=== PATIENT | female | born 1975 | race Caucasian/White ===

== ENCOUNTER 2020-08-10 21:14 | Emergency (ER) | payer SELFPAY ==
--- NOTE | 2020-08-10 | CT_ITS ---
PROCEDURE: CT HEAD/BRAIN W CON CLINICAL INDICATION: headache x 8 days Follow-up abnormal head CT COMPARISON: CT CT HEAD/BRAIN WO CON from 08/10/2020 TECHNIQUE: IV Contrast: 100ML Isovue 370 Axial images obtained. All CT scans at the facility use one or more dose reduction, viz: automated exposure control, ma/kV adjustment per patient size (including targeted exams where dose is matched to indication, i.e. head), or iterative reconstruction technique. FINDINGS: No midline shift, mass effect, intracranial hemorrhage, hydrocephalus, or extra-axial fluid collection is evident. There are multiple hypodense white matter lesions as described in the nonenhanced head CT in the right frontal, bilateral parietal lobes and right thalamus and right external capsule region.. These do not demonstrate contrast enhancement. The calvarium has an unremarkable appearance. No enhancing lesions are evident IMPRESSION: Post-contrast images show no evidence of abnormal enhancement of the multiple rounded areas of decreased attenuation within the white matter. These may be related to lacunar infarctions, demyelinating disease, Lyme disease, vasculitis/migraine headache. Dictated by: Ethan Morocho MD 08/11/2020 06:31 Ethan Morocho MD in [place] 08/11/2020 06:31
[2020-08-10 21:14] VITALS: BP 177/119; PULSE 96; RESP 19; TEMP 37.1; O2SAT 98; BMI 17.4
--- NOTE | 2020-08-10 21:23 | XR_ITS ---
PROCEDURE: XR CHEST 2V CLINICAL HISTORY: cough/congestion , smoker COMPARISON: CR CXR CHEST(2 VIEWS-NOT PORTABLE) from 08/22/2013 CR CXR CHEST(2 VIEWS-NOT PORTABLE) from 01/19/2015 CR CXR1 CHEST-PORTABLE from 05/30/2015 FINDINGS: The cardiomediastinal silhouette and pulmonary vascularity are within normal limits. COPD changes. No lobar consolidation or collapse. No acute bony abnormalities. IMPRESSION: COPD, no acute finding Dictated by: Ethan Morocho MD 08/11/2020 06:02 Ethan Morocho MD in [facility] 08/11/2020 06:02
--- NOTE | 2020-08-10 21:28 | ECG_ITS ---
APPROVED REPORT Exam: Resting ECG HR:92 bpm ECG Measurements Heart Rate 92 AXES MA 160 P 60 QRSd 90 QRS -16 QT 376 T 54 QTc 464 Conclusion Normal sinus rhythm Left atrial abnormality Poor r wave progression Abnormal ECG Electronically signed by : Anshul Aguilera, 08/15/2020 07:34:25
--- NOTE | 2020-08-10 21:30 | CT_ITS ---
PROCEDURE: CT HEAD/BRAIN WO CON CLINICAL INDICATION: headache x 8 days COMPARISON: CT HDWO CT HEAD W/O CONTRAST from 08/22/2013 TECHNIQUE: Axial images obtained. All CT scans at the facility use one or more dose reduction, viz: automated exposure control, ma/kV adjustment per patient size (including targeted exams where dose is matched to indication, i.e. head), or iterative reconstruction technique. FINDINGS: No midline shift, mass effect, intracranial hemorrhage, hydrocephalus, or extra-axial fluid collection is evident. There are numerous small focal areas decreased attenuation in the white matter 2 in the right parietal lobe, 1 in the right frontal lobe, and 1 in the left parietal lobe. These were not present previously and may represent remote lacunar infarctions. Additional focus is also noted within the right thalamus superiorly and in the right external capsule region. The calvarium has an unremarkable appearance. No mastoid effusion. Mild mucosal thickening present in the ethmoid sinuses. IMPRESSION: Multiple white matter hypodensities which have developed since the previous exam and may be due to remote lacunar infarctions. MRI may confirm. No midline shift or acute intracranial hemorrhage. Dictated by: Ethan Morocho MD 08/11/2020 06:27 Ethan Morocho MD in [facility] 08/11/2020 06:27
--- NOTE | 2020-08-10 21:34 | HMH.EDHA ---
ED Disposition Clinical Impression: Bronchitis, Transaminitis, Abnormal head CT, Uncontrolled hypertension Headache Qualifiers: Headache type: unspecified Headache chronicity pattern: acute headache Intractability: not intractable Qualified Code(s): R51.9 - Headache, unspecified Alcohol intoxication Qualifiers: Complication of substance-induced condition: uncomplicated Qualified Code(s): F10.920 - Alcohol use, unspecified with intoxication, uncomplicated Disposition: Home, Self-Care Condition on Discharge: Good Instructions: DI for Headache Additional Instructions: see pcp and neurology for follow up Prescriptions: lisinopriL [Lisinopril 10mg Tab] 10 mg PO DAILY #20 tab Transmission Status: Pending to [facility]/pharmacy #[id number] Azithromycin [Zithromax 250mg tab] 250 mg PO DIRECTED #6 tab Transmission Status: Received by [facility]/pharmacy #[id number] Referrals: Provider,MD Noemí [Referring] - Anel Mena MD [Staff Physician] - - Critical Care Critical Care Time: No Attestation: On 08/10/20, the high probability of a clinically significant, sudden or life threatening deterioration of the following system(s) required my full and direct attention, intervention and personal management. The time I documented below is in addition to time spent performing reported procedures but includes the following listed in this critical care notation. Medical Decision Making - Medical Records Medical records reviewed: Yes: I reviewed the patient's medical records. - Juancho Inquiry Pt receiving controlled substance: No Vital Signs: 08/10/20 21:14 Temperature 98.7 F Temperature Source Oral Pulse Rate [Right Brachial] 96 H Respiratory Rate 19 Blood Pressure [Right Arm] 177/119 H Blood Pressure Mean [Right Arm] 138 Blood Pressure Source [Right Arm] Automatic Cuff Blood Pressure Position [Right Arm] Sitting 02 Sat by Pulse Oximetry 98 Oxygen Delivery Method Room Air - Lab Data Lab results reviewed: Yes: I reviewed the patient's lab results. Lab Results 08/10/20 21:20: WBC 7.1, RBC 5.06, Hgb 15.8, Hct 49.2 H, MCV 97.2, MCH 31.2, MCHC 32.1, RDW 14.6, Plt Count 319, MPV 8.7, Neut % (Auto) 55.5, Lymph % (Auto) 34.5, [place] % (Auto) 5.6, Eos % (Auto) 3.3, Baso % (Auto) 1.2, Neut # (Auto) 4.0, Lymph # (Auto) 2.5, [place] # (Auto) 0.4, Eos # (Auto) 0.2, Baso # (Auto) 0.1, ESR 6 08/10/20 21:20: Sodium 141, Potassium 3.9, Chloride 106, Carbon Dioxide 25, Anion Gap 13.9, BUN 10, Creatinine 0.80, Estimated Creat Clear 61, Estimated GFR 78, Est GFR ( Amer) 94, Glucose 108 H, Calcium 10.2, Total Bilirubin 0.5, Direct Bilirubin 0.3, Conjugated Bilirubin 0.0, Indirect Bilirubin 0.2, Unconjugated Bilirubin 0.2, AST 396 H*, ALT 605 H*, Alkaline Phosphatase 282 H, Troponin I < 0.01, C-Reactive Protein 1.3, Total Protein 8.0, Albumin 4.5, Amylase 62, Lipase 121, Procalcitonin 0.074, Salicylates < 1.0 L, Acetaminophen < 10 L 08/10/20 21:20: SARS-CoV-2 IgG Ab (Rapid) Negative, SARS-CoV-2 IgM Ab (Rapid) Negative 08/10/20 21:20: Plasma/Serum Alcohol 122 H 08/11/20 00:00: Urine Color Yellow, Urine Appearance Clear, Urine pH 6.5, Ur Specific [place] 1.010, Urine Protein Negative, Urine Glucose (UA) Negative, Urine Ketones Negative, Urine Blood Negative, Urine Nitrate Positive, Urine Bilirubin Negative, Urine Urobilinogen 0.2, Ur Leukocyte Esterase Trace, Urine WBC Occasional, Ur Squamous Epith Cells 3-5, Amorphous Sediment 1+, Urine Bacteria 1+, Urine Mucus 1+ 08/11/20 00:00: Urine Opiates Screen Negative, Urine Methadone Screen Negative, Ur Barbituates Screen Negative, Ur Phencyclidine Scrn Negative, Ur Amphetamines Screen Negative, U Benzodiazepines Scrn Negative, Urine Cocaine Screen Negative, U Marijuana (THC) Screen Negative 08/11/20 00:35: Troponin I < 0.01 Result diagrams: 08/10/20 21:20 08/10/20 21:20 Orders (Tests/Meds): ED MEDICATIONS Generic Name Dose Route Start Last Admin Trade Name Freq PRN Reason Stop Dose Admin Sodium Chlorid
[2020-08-10 21:36] LABS: Ethyl Alcohol 122 mg/dl (0-10)
[2020-08-10 21:40] LABS: Basophils # 0.1 K/mm3 (0-0.2); Basophils % 1.2 % (0.1-2.0); Eosinophils # 0.2 K/mm3 (0.0-0.4); Eosinophils % 3.3 % (0.1-12.0); Hematocrit 49.2 % (37.0-47.0); Hemoglobin 15.8 g/dL (12.2-16.2); Lymphocytes # 2.5 K/mm3 (0.7-4.5); Lymphocytes % 34.5 % (10-50); Mean Corpuscular HGB Conc 32.1 g/dL (31.8-35.4); Mean Corpuscular Hemoglobin 31.2 pg (27.0-31.2); Mean Corpuscular Volume 97.2 fl (81-99); Mean Platelet Volume 8.7 fl (7.4-10.4); Monocytes # 0.4 K/mm3 (0.1-1.0); Monocytes % 5.6 % (1.7-9.3); Neutrophils % 55.5 % (37.0-80.0); Platelet Count 319 K/mm3 (142-424); Red Blood Count 5.06 M/mm3 (4.20-5.40); Red Cell Distribution Width 14.6 % (11.5-17.5); White Blood Count 7.1 K/mm3 (4.8-10.8)
[2020-08-10 21:54] LABS: Coronavirus 19 IgG Antibody Negative (Negative); Coronavirus 19 IgM Antibody Negative (Negative)
[2020-08-10 22:16] LABS: Chloride 106 mmol/L (98-107); Sodium 141 mmol/L (136-145)
[2020-08-10 22:17] LABS: Potassium 3.9 mmoL/L (3.5-5.1)
[2020-08-10 22:19] LABS: Alanine Aminotransferase 605 U/L (12-78); Alkaline Phosphatase 282 U/L (38-126); Amylase 62 U/L (30-110); Anion Gap 13.9 mEq/L (5-15); Aspartate Amino Transferase 396 U/L (14-36); Bilirubin,Direct 0.3 mg/dl (0.0-0.4); Bilirubin,Indirect 0.2 mg/dL (0.0-0.9); Bilirubin,Total 0.5 mg/dl (0.2-1.3); Bilirubin,Unconjugated 0.2 mg/dL (0.0-1.1); Blood Urea Nitrogen 10 mg/dl (7-17); Calcium 10.2 mg/dl (8.4-10.2); Carbon Dioxide 25 mmol/L (22.0-30.0); Creatinine Clearance Estimated 61 mL/min (50-200); Estimated Glomerular Filt Rate 78 ml/min (>60); GFR (African American) 94 ML/MIN (>60); Glucose 108 mg/dl (74-100)
[2020-08-10 22:20] LABS: Albumin Level 4.5 g/dl (3.5-5.0); Lipase 121 U/L (23-300)
[2020-08-10 22:21] LABS: Acetaminophen < 10 ug/ml (10-30); Salicylate < 1.0 mg/dL (2.0-20.0)
[2020-08-10 22:23] LABS: Erythrocyte Sedimentation Rate 6 mm/hr (0-20)
[2020-08-10 22:25] LABS: C-Reactive Protein 1.3 mg/L (0-4)
[2020-08-10 22:40] LABS: Troponin I < 0.01 ng/ml (0.00-0.034)
[2020-08-10 23:19] LABS: Procalcitonin 0.074 ng/mL (0.0-2.0)
--- NOTE | 2020-08-10 23:22 | PC.NURSE ---
notified rad of cta.
[2020-08-11 00:03] LABS: Microscopic, Urine URINE MICROSCOPIC (MICROSCOPIC)
[2020-08-11 00:17] LABS: Appearance,Urine CLEAR (Clear); Bilirubin,Urine Negative (Negative); Blood, Urine Negative (Negative); Color,Urine YELLOW (Yellow); Glucose,Urine (UA) Negative (Negative); Ketones,Urine Negative (Negative); Leukocyte Esterase,Urine TRACE (Negative); Nitrate,Urine POSITIVE (Negative); PH,Urine 6.5 (5.0-8.5); Protein,Urine Negative (Negative); Urobilinogen,Urine 0.2 EU/dl (0.2)
[2020-08-11 00:29] LABS: Benzodiazepines Screen,Urine Negative ng/ml (<200)
[2020-08-11 00:30] LABS: Amphetamine/Metha Screen,Urine Negative ng/ml (<1000); Barbiturates Screen,Urine Negative ng/ml (<200)
[2020-08-11 00:31] LABS: Cannabinoid Screen,Urine Negative ng/ml (<50)
[2020-08-11 00:32] LABS: Cocaine Screen,Urine Negative ng/ml (<300); Methadone Screen,Urine Negative ng/ml (<300)
[2020-08-11 00:33] LABS: Opiate Screen,Urine Negative ng/ml (<300); Phencyclidine Screen,Urine Negative ng/ml (<25)
[2020-08-11 00:39] LABS: Amorphous Sediment,Urine 1+ /lpf; Bacteria,Urine 1+ /lpf; Mucus,Urine 1+ /lpf; WBC,Urine Occasional #/hpf (0-3)
[2020-08-11 01:04] LABS: Troponin I < 0.01 ng/ml (0.00-0.034)
--- NOTE | 2020-08-11 01:27 | PC.NURSE ---
spoke with pt family and pt mother stated she didnt have a way to come get her
--- NOTE | 2020-08-11 01:35 | PC.NURSE ---
pt asked this nurse to call her niece. no answer at this time
--- NOTE | 2020-08-11 01:36 | PC.NURSE ---
pt given a drink
[2020-08-11 01:49] VITALS: BP 162/105; PULSE 85; RESP 19; O2SAT 98
[2020-08-11 02:06] VITALS: BP 182/97; PULSE 75; RESP 17; TEMP 36.8; O2SAT 98
== END 2020-08-11 02:08 | disposition home or self-care (01) ==
PROVIDERS: Emergency Provider Emergency Medicine
DX: J20.9 Acute bronchitis, unspecified (principal); R74.01 Elevation of levels of liver transaminase levels; I10 Essential (primary) hypertension; F10.920 Alcohol use, unspecified with intoxication, uncomplicated; Z01.84 Encounter for antibody response examination
CPT/HCPCS: 70450; 70460; 71046; 80048; 80076; 80305; 80329; 81001; 82150; 83690; 84145; 84484; 85025; 85651; 86140; 86328; 87086; 87088; 87186; 93005; 99282

== ENCOUNTER → 2023-01-30 19:35 | Outpatient (CLI) | payer MEDICARE, SELFPAY ==
[2023-01-30 20:56] LABS: Basophils % 0.6 % (0.1-2.0); Eosinophils # 0.2 K/mm3 (0.0-0.4); Eosinophils % 2.3 % (0.1-12.0); Hemoglobin 14.7 g/dL (12.2-16.2); Lymphocytes % 25.3 % (10-50); Mean Corpuscular HGB Conc 32.1 g/dL (31.8-35.4); Mean Corpuscular Hemoglobin 30.4 pg (27.0-31.2); Mean Corpuscular Volume 94.8 fl (81-99); Mean Platelet Volume 10.1 fl (7.4-10.4); Monocytes # 0.4 K/mm3 (0.1-1.0); Monocytes % 5.1 % (1.7-9.3); Neutrophils # 5.2 K/mm3 (1.8-7.8); Neutrophils % 66.7 % (37.0-80.0); Platelet Count 340 K/mm3 (142-424); Red Blood Count 4.85 M/mm3 (4.20-5.40); Red Cell Distribution Width 13.5 % (11.5-17.5); White Blood Count 7.8 K/mm3 (4.8-10.8)
[2023-01-30 21:56] LABS: Alanine Aminotransferase 109 U/L (12-78); Albumin Level 4.1 g/dl (3.5-5.0); Albumin/Globulin Ratio 1.1 (1.1-1.8); Alkaline Phosphatase 127 U/L (38-126); Amylase 65 U/L (30-110); Anion Gap 15.7 mEq/L (5-15); Aspartate Amino Transferase 91 U/L (14-36); Bilirubin,Total 0.5 mg/dl (0.2-1.3); Blood Urea Nitrogen 8 mg/dl (7-17); Calcium 9.5 mg/dl (8.4-10.2); Carbon Dioxide 26 mmol/L (22.0-30.0); Chloride 98 mmol/L (98-107); Chol/HDL Ratio 5.5 (1-3.5); Cholesterol 242 mg/dl (140-200); Estimated Glomerular Filt Rate 77 ml/min (>60); GFR (African American) 93 ML/MIN (>60); Globulin 3.6 g/dL (1.3-3.2); Glucose 91 mg/dl (74-100); HDL Cholesterol 44 mg/dl (40-60); Potassium 4.7 mmoL/L (3.5-5.1); Sodium 135 mmol/L (136-145); Total Protein,Serum 7.7 g/dl (6.3-8.2); Triglycerides 279 mg/dl (30-150); VLDL Cholesterol 56 mg/dL (0-40)
[2023-01-30 22:06] LABS: Direct LDL Cholesterol 163.45 mg/dL (100-129)
[2023-01-30 22:27] LABS: Thyroid Stimulating Hormone 2.21 uIU/mL (0.465-4.68)
[2023-01-30 22:56] LABS: Hemoglobin A1C 5.4 % (4.0-6.0)
[2023-01-30 23:02] LABS: Vitamin B12 326 pg/mL (239-931)
[2023-01-30 23:03] LABS: Folate 9.12 ng/mL
[2023-02-01 11:12] LABS: HIV Screen 4th Generation wRfx Non Reactive (Non Reactive)
[2023-02-04 14:39] LABS: HBsAg Screen Negative (Negative); HCV Ab Reactive (Non Reactive); Hep A Ab, IGM Negative (Negative); Hep B Core Ab, IgM Negative (Negative)
== END ==
PROVIDERS: PCP Nurse Practitioner; Visit Provider Nurse Practitioner
DX: I16.1 Hypertensive emergency (principal); D48.7 Neoplasm of uncertain behavior of other specified sites; K85.90 Acute pancreatitis without necrosis or infection, unspecified; R74.8 Abnormal levels of other serum enzymes; R26.89 Other abnormalities of gait and mobility; J44.9 Chronic obstructive pulmonary disease, unspecified; Z86.69 Personal history of other diseases of the nervous system and sense organs; B19.20 Unspecified viral hepatitis C without hepatic coma; Z11.4 Encounter for screening for human immunodeficiency virus [HIV]; Z79.899 Other long term (current) drug therapy
CPT/HCPCS: 80053; 80061; 80074; 82150; 82607; 82746; 83036; 84443; 85025; 86703; G0432

== ENCOUNTER 2023-02-01 14:05 | Inpatient (IN) | payer MEDICAID, SELFPAY ==
[2023-02-01] VITALS (12 sets, daily range): BP systolic 139–196; BP diastolic 100–133; PULSE 77–102; RESP 17–19; TEMP 36.4–36.8; O2SAT 97–100; BMI 25.1; BMI 25.4
--- NOTE | 2023-02-01 14:06 | ECG_ITS ---
APPROVED REPORT Exam: Resting ECG HR:88 bpm ECG Measurements Heart Rate 88 AXES NV 153 P 48 QRSd 89 QRS -14 QT 361 T 80 QTc 406 Conclusion SINUS RHYTHM NONSPECIFIC T-WAVE ABNORMALITY BORDERLINE ECG UNCONFIRMED REPORT Electronically signed by : Anshul Aguilera MD 02/02/2023 07:44:51
--- NOTE | 2023-02-01 14:18 | HMH.EDGENADL ---
Discharge Plan Disposition Patient Disposition: Home, Self-Care Prescriptions Prescriptions: No Action lisinopril 20 mg tablet 20 mg PO DAILY Qty: 30 2RF cefdinir 300 mg capsule 300 mg PO BID Qty: 20 0RF albuterol sulfate 90 mcg/actuation HFA aerosol inhaler 2 puff inhalation Q4-6H PRN (Reason: shortness of breath or wheezing) Qty: 8.5 0RF Clinical Impressions Clinical Impression: Non-ST elevation [place] (NSTEMI) Discharge ED Provider: Stef Claros General Adult HPI General Chief complaint: Chest Pain Stated complaint: chest pain Time Seen by Provider: 02/01/23 14:18 History of Present Illness HPI narrative: Patient is a 47-year-old female who is homeless presenting today accompanied by a friend for chest pain. She went to family care today and states that she has been having chest pain over the last 3 days that has been nocturnal radiating to her left jaw and left arm not exertional in nature no dyspnea or diaphoresis associated with this worsened with sitting back improved with sitting up consistent with gastroesophageal reflux symptoms she has had in the past. She states that she was at her primary care doctor's office and because she has a difficult time remembering things they called her friend who accompanied her to the ED today. The patient is homeless and states that she does not have a phone for follow-up. 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 She has been without any symptoms since last night. Currently asymptomatic. Related Data Previous Rx's Medication Instructions Recorded albuterol sulfate 90 mcg/actuation 2 puff inhalation Q4-6H PRN 02/01/23 aerosol inhaler shortness of breath or wheezing #8.5 grams cefdinir 300 mg capsule 300 mg PO BID #20 caps 02/01/23 lisinopril 20 mg tablet 20 mg PO DAILY #30 tabs 02/01/23 Allergies Allergy/AdvReac Type Severity Reaction Status Date / Time PENICILLIN Allergy Mild UNKNOWN Uncoded 02/01/23 12:59 [facility] Disclaimer: The information contained in this section may have been updated after the patient was seen, as this information can be updated by other users. Medical History (Updated 02/01/23 @ 15:49 by Stef Claros MD) Chest pain COPD (chronic obstructive pulmonary disease) Elevated liver enzymes Hepatitis C History of cardiomyopathy History of encephalopathy Hx of pancreatitis Hypertensive emergency Neoplasm of uncertain behavior of neck Pancreatitis Unsteady gait when walking Surgical History Hx of cholecystectomy Social History Smoking Status: Current every day smoker tobacco type: cigarettes packs per day: 1 alcohol intake: never current occupational status: unemployed Travel in the last 8 weeks: None ROS Obtained: Yes All systems reviewed & no additional complaints except as documented Physical Exam General General appearance: alert Respiratory Respiratory exam: Present normal lung sounds bilaterally; Absent respiratory distress Cardiovascular Cardiovascular exam: Present regular rate and tachycardia Neurological Exam Neurological exam: Present alert and oriented X3 Medical Decision Making Juancho Inquiry Pt receiving controlled substance: No Vital Signs: 02/01/23 14:06 02/01/23 14:30 02/01/23 15:04 Temperature 97.8 F Temperature Source Oral Pulse Rate 91 H 84 Pulse Rate [Left Radial] 99 H Respiratory Rate 17 Blood Pressure 184/133 H 155/107 H Blood Pressure [Right Arm] 196/130 H Blood Pressure Mean 150 123 Blood Pressure Mean [Right Arm] 152 Blood Pressure Source [Right Arm] Automatic Cuff Blood Pressure Position [Right Arm] Sitting 02 Sat by Pulse Oximetry 99 100 98 Oxygen Delivery Method Room Air Room Air Lab Data
--- NOTE | 2023-02-01 14:26 | XR_ITS ---
FINAL REPORT CLINICAL HISTORY: dyspnea COMPARISON: 08/10/2020 FINDINGS: SINGLE-VIEW CHEST The heart size is normal. The mediastinum is normal. The lungs are clear. There is no pneumothorax. IMPRESSION: No acute cardiopulmonary process. Reviewed, Interpreted and Dictated by Ezio Encinas III, MD Transcribed by Tiffany Baltazar Authenticated and [facility]
--- NOTE | 2023-02-01 14:40 | PC.NURSE ---
Pt ambulatory to restroom; without complications
--- NOTE | 2023-02-01 14:42 | PC.NURSE ---
pt ambulatory from restroom without complications. hooked back to monitor, call byrd within reach
--- NOTE | 2023-02-01 14:51 | PC.NURSE ---
Rad at bs
--- NOTE | 2023-02-01 15:07 | PC.NURSE ---
labs drawn and sent to lab
[2023-02-01 15:15] LABS: Basophils # 0.1 K/mm3 (0-0.2); Basophils % 0.8 % (0.1-2.0); Eosinophils # 0.2 K/mm3 (0.0-0.4); Eosinophils % 2.3 % (0.1-12.0); Hematocrit 49.6 % (37.0-47.0); Lymphocytes # 1.7 K/mm3 (0.7-4.5); Lymphocytes % 23.3 % (10-50); Mean Corpuscular HGB Conc 32.3 g/dL (31.8-35.4); Mean Corpuscular Hemoglobin 30.8 pg (27.0-31.2); Mean Corpuscular Volume 95.2 fl (81-99); Mean Platelet Volume 8.7 fl (7.4-10.4); Monocytes # 0.3 K/mm3 (0.1-1.0); Monocytes % 3.7 % (1.7-9.3); Neutrophils # 5.1 K/mm3 (1.8-7.8); Neutrophils % 69.9 % (37.0-80.0); Platelet Count 335 K/mm3 (142-424); Red Blood Count 5.21 M/mm3 (4.20-5.40); Red Cell Distribution Width 13.5 % (11.5-17.5); White Blood Count 7.3 K/mm3 (4.8-10.8)
[2023-02-01 15:18] LABS: Alanine Aminotransferase 110 U/L (12-78); Albumin Level 4.4 g/dl (3.5-5.0); Alkaline Phosphatase 150 U/L (38-126); Anion Gap 17.4 mEq/L (5-15); Aspartate Amino Transferase 102 U/L (14-36); Bilirubin,Total 0.6 mg/dl (0.2-1.3); Blood Urea Nitrogen 6 mg/dl (7-17); Calcium 9.6 mg/dl (8.4-10.2); Carbon Dioxide 26 mmol/L (22.0-30.0); Chloride 98 mmol/L (98-107); Creatinine Clearance Estimated 84 mL/min (50-200); Estimated Glomerular Filt Rate 77 ml/min (>60); GFR (African American) 93 ML/MIN (>60); Globulin 4.3 g/dL (1.3-3.2); Glucose 98 mg/dl (74-100); Potassium 4.4 mmoL/L (3.5-5.1); Sodium 137 mmol/L (136-145); Total Protein,Serum 8.7 g/dl (6.3-8.2)
[2023-02-01 15:24] LABS: D-Dimer 0.68 ug/mL (0.0-0.5)
[2023-02-01 15:31] LABS: Troponin I 1.47 ng/ml (0.00-0.034)
--- NOTE | 2023-02-01 15:40 | PC.NURSE ---
Dr. Carrillo paged for ED doctor
--- NOTE | 2023-02-01 15:42 | PC.NURSE ---
Dr Claros speaking with Dr Carrillo
--- NOTE | 2023-02-01 15:45 | ECG_ITS ---
APPROVED REPORT Exam: Resting ECG HR:84 bpm ECG Measurements Heart Rate 84 AXES [place] 161 P 52 QRSd 85 QRS -2 QT 378 T 75 QTc 419 Conclusion SINUS RHYTHM NONSPECIFIC T-WAVE ABNORMALITY BORDERLINE ECG UNCONFIRMED REPORT Electronically signed by : Anshul Aguilera MD 02/02/2023 07:44:38
--- NOTE | 2023-02-01 15:57 | EXP.HP ---
[facility] Disclaimer: The information contained in this section may have been updated after the patient was seen, as this information can be updated by other users. Medical History (Updated 02/01/23 @ 15:49 by Stef Claros MD) Chest pain COPD (chronic obstructive pulmonary disease) Elevated liver enzymes Hepatitis C History of cardiomyopathy History of encephalopathy Hx of pancreatitis Hypertensive emergency Neoplasm of uncertain behavior of neck Pancreatitis Unsteady gait when walking Surgical History Hx of cholecystectomy Social History Smoking Status: Current every day smoker tobacco type: cigarettes packs per day: 1 alcohol intake: never current occupational status: unemployed Travel in the last 8 weeks: None Meds Home Medications and Allergies Home Medications Medication Instructions Recorded Confirmed Type albuterol sulfate 90 mcg/actuation 2 puff inhalation Q4-6H PRN 02/01/23 02/01/23 Rx aerosol inhaler shortness of breath or wheezing #8.5 grams cefdinir 300 mg capsule 300 mg PO BID #20 caps 02/01/23 02/01/23 Rx lisinopril 20 mg tablet 20 mg PO DAILY #30 tabs 02/01/23 02/01/23 Rx New Prescriptions to Start Prescriptions: Allergies Allergy/AdvReac Type Severity Reaction Status Date / Time PENICILLIN Allergy Mild UNKNOWN Uncoded 02/01/23 12:59 Exam Data for Last 24 hours Vital signs and Labs for Last 24 Hours: Temp Pulse Resp BP Pulse Ox 97.8 F 84 17 155/107 H 98 02/01/23 14:06 02/01/23 15:04 02/01/23 14:06 02/01/23 15:04 02/01/23 15:04 Laboratory Results - last 24 hr 02/01/23 15:04: WBC 7.3, RBC 5.21, Hgb 16.0, Hct 49.6 H, MCV 95.2, MCH 30.8, MCHC 32.3, RDW 13.5, Plt Count 335, MPV 8.7, Neut % (Auto) 69.9, Lymph % (Auto) 23.3, [place] % (Auto) 3.7, Eos % (Auto) 2.3, Baso % (Auto) 0.8, Neut # (Auto) 5.1, Lymph # (Auto) 1.7, [place] # (Auto) 0.3, Eos # (Auto) 0.2, Baso # (Auto) 0.1 02/01/23 15:04: D-Dimer 0.68 H 02/01/23 15:04: Sodium 137, Potassium 4.4, Chloride 98, Carbon Dioxide 26, Anion Gap 17.4 H, BUN 6 L, Creatinine 0.80, Estimated Creat Clear 84, Estimated GFR 77, Est GFR ( Amer) 93, Glucose 98, Calcium 9.6, Total Bilirubin 0.6, AST 102 H, ALT 110 H, Alkaline Phosphatase 150 H, Troponin I 1.47 H, Total Protein 8.7 H, Albumin 4.4, Globulin 4.3 H, Albumin/Globulin Ratio 1.0 L I & O for Last 24 hours: Intake & Output 01/29/23 01/30/23 01/31/23 02/01/23 23:59 23:59 23:59 23:59 Weight 60.328 kg
--- NOTE | 2023-02-01 16:26 | PC.NURSE ---
notified lab of covid swab sent up and order placed
--- NOTE | 2023-02-01 16:27 | PC.NURSE ---
called report to BLADIMIR Lloyd waiting on COVID results before transfer to second floor
[2023-02-01 16:28] LABS: Coronavirus 19, PCR Not Detected (NotDetected); Influenza A, PCR Not Detected (NotDetected); Influenza B, PCR Not Detected (NotDetected)
--- NOTE | 2023-02-01 17:12 | PC.NURSE ---
Latanya Ham RN called and updated on patient.
--- NOTE | 2023-02-01 17:26 | PC.NURSE ---
PT ARRIVED TO FLOOR BY STRETCHER AT [id number]
[2023-02-01 18:29] LABS: Troponin I 1.38 ng/ml (0.00-0.034)
--- NOTE | 2023-02-01 20:06 | EXP.HP ---
History of Present Illness *Admission Date: 02/01/23 *Reason for visit:: Chest pain *History of present illness: This is a 47-year-old female with past medical history of asthma, tobacco use disorder, chronic pancreatitis, HCVwho presents emergency department today for complaints of chest pain. She reports she was seen by her doctor today and complained of chest pain and they sent her to the emergency department. She reports the chest pain started last night and was pressure-like in nature and center of her chest. She denies any radiation of the pain. She states the pain has now subsided but her PCP wanted her to be checked. She denies any palpitations, shortness of breath, chest pain. She does have a history of alcoholism but currently denies alcohol usage. She denies illicit drug use but does endorse pack a day. Emergency department work-up significant for transaminitis but similar to baseline. Troponin elevated at 1.47 with a downtrend of 1.38. COVID and flu are negative. She was noted to be hypertensive with systolic in the 140s. She received aspirin and Brilinta in the emergency department. Dr. Carrillo was consulted and recommends hospitalization. She is admitted to the hospital service for further evaluation [facility] Disclaimer: The information contained in this section may have been updated after the patient was seen, as this information can be updated by other users. Medical History Chest pain COPD (chronic obstructive pulmonary disease) Elevated liver enzymes Hepatitis C History of cardiomyopathy History of encephalopathy Hx of pancreatitis Hypertensive emergency Neoplasm of uncertain behavior of neck Pancreatitis Unsteady gait when walking Surgical History Hx of cholecystectomy Social History (Updated 02/01/23 @ 16:57 by Telma Meeks RN) Smoking Status: Current every day smoker tobacco type: cigarettes packs per day: 1 alcohol intake: never current occupational status: unemployed Travel in the last 8 weeks: None Review of Systems Review of Systems Review of systems:: pertinent systems reviewed and negative unless documented below Meds Home Medications and Allergies Home Medications Medication Instructions Recorded Confirmed Type albuterol sulfate 90 mcg/actuation 2 puff inhalation Q4HP PRN 02/02/23 02/02/23 History aerosol inhaler (Ventolin HFA) Shortness Of Breath cefdinir 300 mg capsule 300 mg PO BID Infection 02/02/23 02/02/23 History lisinopril 20 mg tablet 20 mg PO DAILY BLOOD PRESSURE 02/02/23 02/02/23 History New Prescriptions to Start Prescriptions: Allergies Allergy/AdvReac Type Severity Reaction Status Date / Time Penicillins Allergy Intermediate Unknown Verified 02/02/23 10:38 allergy reaction Exam Data for Last 24 hours Vital signs and Labs for Last 24 Hours: Temp Pulse Resp BP Pulse Ox 97.6 F 85 18 140/103 H 100 02/01/23 17:32 02/01/23 18:07 02/01/23 17:32 02/01/23 17:32 02/01/23 17:50 Laboratory Results - last 24 hr 02/01/23 15:04: WBC 7.3, RBC 5.21, Hgb 16.0, Hct 49.6 H, MCV 95.2, MCH 30.8, MCHC 32.3, RDW 13.5, Plt Count 335, MPV 8.7, Neut % (Auto) 69.9, Lymph % (Auto) 23.3, [place] % (Auto) 3.7, Eos % (Auto) 2.3, Baso % (Auto) 0.8, Neut # (Auto) 5.1, Lymph # (Auto) 1.7, [place] # (Auto) 0.3, Eos # (Auto) 0.2, Baso # (Auto) 0.1 02/01/23 15:04: D-Dimer 0.68 H 02/01/23 15:04: Sodium 137, Potassium 4.4, Chloride 98, Carbon Dioxide 26, Anion Gap 17.4 H, BUN 6 L, Creatinine 0.80, Estimated Creat Clear 84, Estimated GFR 77, Est GFR ( Amer) 93, Glucose 98, Calcium 9.6, Total Bilirubin 0.6, AST 102 H, ALT 110 H, Alkaline Phosphatase 150 H, Troponin I 1.47 H, Total Protein 8.7 H, Albumin 4.4, Globulin 4.3 H, Albumin/Globulin Ratio 1.0 L 02/01/23 16:23: SARS-CoV-2 (PCR) Not detected, Influenza A Untype (PCR) Not detected, Influenza Type
[2023-02-01 21:07] LABS: Troponin I 1.34 ng/ml (0.00-0.034)
[2023-02-01 22:20] LABS: Appearance,Urine CLEAR (Clear); Bilirubin,Urine Negative (Negative); Blood, Urine Negative (Negative); Color,Urine YELLOW (Yellow); Glucose,Urine (UA) Negative (Negative); Ketones,Urine Negative (Negative); Leukocyte Esterase,Urine 1+ (Negative); Microscopic, Urine URINE MICROSCOPIC (MICROSCOPIC); Nitrate,Urine Negative (Negative); Protein,Urine Negative (Negative)
[2023-02-01 22:33] LABS: Barbiturates Screen,Urine Negative ng/ml (<200); Benzodiazepines Screen,Urine Negative ng/ml (<200)
[2023-02-01 22:34] LABS: Amphetamine/Metha Screen,Urine Negative ng/ml (<1000); Cannabinoid Screen,Urine Negative ng/ml (<50)
[2023-02-01 22:35] LABS: Cocaine Screen,Urine Negative ng/ml (<300)
[2023-02-01 22:36] LABS: Methadone Screen,Urine Negative ng/ml (<300); Opiate Screen,Urine Negative ng/ml (<300)
[2023-02-01 22:37] LABS: Phencyclidine Screen,Urine Negative ng/ml (<25)
[2023-02-01 23:04] LABS: WBC,Urine Occasional #/hpf (0-3)
[2023-02-01 23:05] LABS: Squamous Epithelial Cell,Urine Occasional #/hpf (0-5)
[2023-02-02] VITALS (23 sets, daily range): BP systolic 99–148; BP diastolic 55–102; PULSE 70–101; RESP 14–21; TEMP 36.6–36.8; O2SAT 91–100; BMI 24.4
--- NOTE | 2023-02-02 09:10 | PC.NURSE ---
09-Notified by Dr Carrillo to page cath team for [id number]; mac operator notified and cath team paged 09-Michaelle Montana and Felisa returned call
[2023-02-02 09:13] LABS: Basophils % 0.5 % (0.1-2.0); Eosinophils # 0.1 K/mm3 (0.0-0.4); Eosinophils % 1.8 % (0.1-12.0); Hematocrit 44.4 % (37.0-47.0); Hemoglobin 14.5 g/dL (12.2-16.2); Lymphocytes # 1.7 K/mm3 (0.7-4.5); Lymphocytes % 20.9 % (10-50); Mean Corpuscular HGB Conc 32.7 g/dL (31.8-35.4); Mean Corpuscular Hemoglobin 30.5 pg (27.0-31.2); Mean Corpuscular Volume 93.2 fl (81-99); Mean Platelet Volume 8.6 fl (7.4-10.4); Monocytes # 0.4 K/mm3 (0.1-1.0); Monocytes % 5.3 % (1.7-9.3); Neutrophils # 5.9 K/mm3 (1.8-7.8); Neutrophils % 71.4 % (37.0-80.0); Platelet Count 372 K/mm3 (142-424); Red Blood Count 4.76 M/mm3 (4.20-5.40); Red Cell Distribution Width 13.7 % (11.5-17.5); White Blood Count 8.2 K/mm3 (4.8-10.8)
[2023-02-02 09:23] LABS: Alanine Aminotransferase 87 U/L (12-78); Albumin Level 3.9 g/dl (3.5-5.0); Albumin/Globulin Ratio 1.1 (1.1-1.8); Alkaline Phosphatase 137 U/L (38-126); Anion Gap 18.1 mEq/L (5-15); Aspartate Amino Transferase 78 U/L (14-36); Bilirubin,Total 0.9 mg/dl (0.2-1.3); Blood Urea Nitrogen 9 mg/dl (7-17); Calcium 9.4 mg/dl (8.4-10.2); Carbon Dioxide 22 mmol/L (22.0-30.0); Chloride 100 mmol/L (98-107); Creatinine Clearance Estimated 72 mL/min (50-200); Estimated Glomerular Filt Rate 67 ml/min (>60); GFR (African American) 82 ML/MIN (>60); Globulin 3.7 g/dL (1.3-3.2); Glucose 123 mg/dl (74-100); Potassium 4.1 mmoL/L (3.5-5.1); Sodium 136 mmol/L (136-145); Total Protein,Serum 7.6 g/dl (6.3-8.2)
--- NOTE | 2023-02-02 10:03 | IR_ITS ---
APPROVED REPORT Patient Location: Inpatient Economic Analyst: LEISA Wyman RT (R) PROCEDURES Left heart catheterization Left ventriculogram Selective coronary angiogram Drug-eluting stent deployment to the proximal and mid LAD in a contiguous manner Informed consent was obtained prior to the procedure. COMPLICATIONS None Estimated Blood Loss: Less than 10 ML TECHNIQUE One percent lidocaine used to anesthetize the right anterior aspect of the wrist. The right radial artery was accessed via the Seldinger technique. A 6 Indonesian sheath was placed in the right radial artery. 150 mg magnesium sulfate, 800 mcg of nitroglycerin, 1mg Lidocaine and 5000 U Heparin were given through the arterial sheath. The papa catheter was also used to perform left heart catheterization, left ventriculogram and selective coronary angiogram. At the end the diagnostic angiogram therapeutic heparin was administered giving a therapeutic ACT and the guide catheter was placed in left main artery followed by Choice PT extra-support wire traversing the proximal to mid LAD stenosis. A 2.5 x 38 mm resolute Wray stent was deployed at 14 miley reducing the stenosis to 0%. A 3 mm x 15 mm resolute Jimmy stent was then placed proximal to the for stent yet still overlapping it and deployed at 20 miley. This 3 mm balloon was then advanced into the proximal portion of the 2.5 mm stent and then deployed at 14 miley to post dilate. GISELLA-3 flow was present before and after the procedure. The end of procedure there was significant spasm in the right arm. 3 separate aliquots of 1600 mcg of intra brachial nitroglycerin were administered. This eventually allowed removal of the guide catheter and sheath. At the end of the procedure there was good arterial waveform in the radial artery. ANGIOGRAPHIC RESULTS The left main artery Normal The left anterior descending artery And has a proximal tubular 30% stenosis followed by a concentric 90% stenosis immediately after a moderate-sized diagonal artery. There is an additional 50 to 60% stenosis. Distally the vessel has 50% stenoses along tortuous bends. The LAD is large and wraps the apex The circumflex artery Is a dominant vessel and has proximal 10 to 20% stenoses with a 30% stenosis in the large terminal obtuse marginal artery The right coronary artery Nondominant vessel and has proximal 70% with a mid vessel 70 to 80% stenosis stenosis. The vessel is 2.5 mm in diameter The MENDOZA ventriculogram reveals Normal 65% The left ventricular end-diastolic pressure 20 mmHg IMPRESSION Critical mid LAD disease as described above Successful stenting of the proximal to mid LAD severe and critical disease reduced to 0% with 2 contiguous drug-eluting stents Normal ejection fraction Persistent moderate to severe stenosis in a nondominant right coronary artery Mildly elevated LVEDP PLAN 1. Dual antiplatelet therapy 2. LDL less than 55 to be achieved with high intensity statin 3. Beta-blockers and SHAHNAZ inhibitors 4. Avoidance of tobacco products 5. Risk factor modification 6. Cardiac rehabilitation 7. At this point I favor medical management for the right coronary artery. Electronically signed by : Houston Carrillo MD 02/02/2023 11:09:43
--- NOTE | 2023-02-02 11:14 | EXP.DC.SUM ---
General Admission date:: 02/01/23 Discharge date: 02/04/23 HPI HPI HPI: This is a 47-year-old female with past medical history of asthma, tobacco use disorder, chronic pancreatitis, HCVwho presents emergency department today for complaints of chest pain.? She reports she was seen by her doctor today and complained of chest pain and they sent her to the emergency department.? She reports the chest pain started last night and was pressure-like in nature and center of her chest.? She denies any radiation of the pain.? She states the pain has now subsided but her PCP wanted her to be checked.? She denies any palpitations, shortness of breath, chest pain.? She does have a history of alcoholism but currently denies alcohol usage.? She denies illicit drug use but does endorse pack a day. Emergency department work-up significant for transaminitis but similar to baseline.? Troponin elevated at 1.47 with a downtrend of 1.38.? COVID and flu are negative.? She was noted to be hypertensive with systolic in the 140s.? She received aspirin and Brilinta in the emergency department.? Dr. Carrillo was consulted and recommends hospitalization.? She is admitted to the hospital service for further evaluation Hospital Course Hospital Course Hospital Course: This is a 47-year-old female with a past medical history of COPD, HCV, recurrent pancreatitis, abdominal mass who presents emergency department today with complaints of chest pain.? Emergency department work-up significant for elevated troponins.? Taken for heart cath yesterday, severe mid LAD lesion intervened upon.? Chest pain-free this morning.? Right arm still swollen but improving. Bruising progressed from right axilla to right wrist. No signs of continued bleeding on imaging of right arm, stable for discharge. Social setting complicates discharge. Case management assisting.? Problems addressed as follows: Acute coronary syndrome NSTEMI HTN Patient has been chest pain-free since admission. Troponins were elevated however. Taken for left heart cath on Saturday. Had some arterial spasm at the end of the procedure. Developed some bruising and ecchymosis of her right arm. Multiple images including CTA of right upper extremity and ultrasound of right upper extremity confirm patency of arteries, no pseudoaneurysm, no active bleeding or thrombosis. Does have significant hematoma. This should resolve in time on its own. Plan to continue dual antiplatelet therapy with aspirin and Brilinta. Lisinopril for blood pressure control. Lipitor for hyperlipidemia. Initiated on bisoprolol 5 mg daily for goal-directed therapy. Close follow-up with cardiology. Stressed the importance of adhering to antiplatelet therapy with patient. States she should be able to take her medications. Meds to beds provided meds before discharge. Arm pain/swelling Concern for bleed in setting of spasm during cath. Bruising noted as stated above. CTA of arm obtained with no extravasation, patent arteries. Ultrasound obtained on 02/04 with no thrombi, pseudoaneurysm. Does have hematoma noted. Does not appear to have active bleeding his hemoglobin has remained stable at 12.7 for the past 3 days. Continue Tylenol every 6 hours as needed, elevation and warm compress. Pulses intact. Stable for discharge. Counseled that this will resolve in time. Chronic obstructive pulmonary disease Stable. Continue bronchodilators PRN Transaminitis Stable, chronic. History of alcoholism. Hepatitis panel obtained, still pending at discharge Hepatitis panel pending History of alcoholism Denies current alcohol use Stable for discharge. Case management coordinating if [employer] bus for transportation. Patient has stated she has an address to go to in [place]. Concern for unstable living situation complicating her care. We have arranged appointments for follow-up with both cardiology and primary care prior to discharge. Patient states she can make these appoint
[2023-02-02 11:43] LABS: CATHL Activated Clotting Time 340 SEC (74-125)
--- NOTE | 2023-02-02 14:40 | EXP.ACUTE.PN ---
Subjective *Date: 02/02/23 *Time: 17:53 Interval history: Taken for [facility] this morning. No longer having chest pain. Stable on Room air. No nausea, emesis, diarrhea. Medical Exam Vital signs and Labs for Last 24 Hours: Vital Signs Temp Pulse Pulse Resp BP BP Pulse Ox 02/02/23 11:24 86 20 110/69 96 02/02/23 11:20 90 20 133/83 95 02/02/23 11:15 83 16 119/58 L 95 02/02/23 11:18 80 101 H 20 103/55 L 92 L 02/02/23 08:03 80 02/02/23 08:52 90 20 142/82 H 02/02/23 07:44 98.3 F 82 18 135/100 H 98 02/02/23 04:00 70 02/02/23 04:00 98.1 F 84 18 148/102 H 98 02/02/23 00:00 97.9 F 92 H 18 132/93 H 98 02/02/23 00:00 90 02/01/23 20:00 98 02/01/23 20:00 90 02/01/23 20:00 97.9 F 88 18 153/101 H 100 02/01/23 18:07 85 02/01/23 17:50 102 H 100 02/01/23 17:29 98.2 F 87 17 145/105 H 02/01/23 17:32 97.6 F 102 H 18 140/103 H 100 02/01/23 17:00 87 19 139/106 H 100 02/01/23 16:31 77 19 148/103 H 99 02/01/23 16:00 92 H 19 140/110 H 100 02/01/23 15:30 85 155/100 H 98 02/01/23 15:04 84 155/107 H 98 Intake and Output 02/01/23 02/02/23 02/02/23 23:59 07:59 15:59 Intake Total 0 / 0 Output Total 150 / 150 0 / 0 0 / 0 Balance -150 / -150 0 / 0 0 / 0 Intake: Intake, Oral Amount 0 / 0 Output: Output, Urine Amount 150 / 150 0 / 0 0 / 0 Other: Number of Unmeasured Voids 1 1 Weight 61.235 kg 58.769 kg Patient Weight 02/02/23 23:59 Weight 58.769 kg Laboratory Results - last 24 hr 02/01/23 15:04: WBC 7.3, RBC 5.21, Hgb 16.0, Hct 49.6 H, MCV 95.2, MCH 30.8, MCHC 32.3, RDW 13.5, Plt Count 335, MPV 8.7, Neut % (Auto) 69.9, Lymph % (Auto) 23.3, [place] % (Auto) 3.7, Eos % (Auto) 2.3, Baso % (Auto) 0.8, Neut # (Auto) 5.1, Lymph # (Auto) 1.7, [place] # (Auto) 0.3, Eos # (Auto) 0.2, Baso # (Auto) 0.1 02/01/23 15:04: D-Dimer 0.68 H 02/01/23 15:04: Sodium 137, Potassium 4.4, Chloride 98, Carbon Dioxide 26, Anion Gap 17.4 H, BUN 6 L, Creatinine 0.80, Estimated Creat Clear 84, Estimated GFR 77, Est GFR ( Amer) 93, Glucose 98, Calcium 9.6, Total Bilirubin 0.6, AST 102 H, ALT 110 H, Alkaline Phosphatase 150 H, Troponin I 1.47 H, Total Protein 8.7 H, Albumin 4.4, Globulin 4.3 H, Albumin/Globulin Ratio 1.0 L 02/01/23 16:23: SARS-CoV-2 (PCR) Not detected, Influenza A Untype (PCR) Not detected, Influenza Type B (PCR) Not detected 02/01/23 17:55: Troponin I 1.38 H 02/01/23 20:30: Troponin I 1.34 H 02/01/23 22:10: Urine Opiates Screen Negative, Urine Methadone Screen Negative, Ur Barbituates Screen Negative, Ur Phencyclidine Scrn Negative, Ur Amphetamines Screen Negative, U Benzodiazepines Scrn Negative, Urine Cocaine Screen Negative, U Marijuana (THC) Screen Negative 02/01/23 : Urine Color Yellow, Urine Appearance Clear, Urine pH 8.0, Ur Specific Staples 1.010, Urine Protein Negative, Urine Glucose (UA) Negative, Urine Ketones Negative, Urine Blood Negative, Urine Nitrate Negative, Urine Bilirubin Negative, Urine Urobilinogen 2.0, Ur Leukocyte Esterase 1+ A, Urine RBC None, Urine WBC Occasional, Ur Squamous Epith Cells Occasional, Urine Bacteria None 02/02/23 08:45: WBC 8.2, RBC 4.76, Hgb 14.5, Hct 44.4, MCV 93.2, MCH 30.5, MCHC 32.7, RDW 13.7, Plt Count 372, MPV 8.6, Neut % (Auto) 71.4, Lymph % (Auto) 20.9, [place] % (Auto) 5.3, Eos % (Auto) 1.8, Baso % (Auto) 0.5, Neut # (Auto) 5.9, Lymph # (Auto) 1.7, [place] # (Auto) 0.4, Eos # (Auto) 0.1, Baso # (Auto) 0.0 02/02/23 08:45: Sodium 136, Potassium 4.1, Chloride 100, Carbon Dioxide 22, Anion Gap 18.1 H, BUN 9 D, Creatinine 0.90, Estimated Creat Clear 72, Estimated GFR 67, Est GFR ( Amer) 82, Glucose 123 H D, Calcium 9.4, Magnesium 2.0, Total Bilirubin 0.9, AST 78 H, ALT 87 H, Alkaline Phosphatase 137 H, Total Protein 7.6, Albumin 3.9 D, Globulin 3.7 H, Albumin/Globulin Ratio 1.1 02/02/23 10:44: Activated Clotting Time 340 H* I &
--- NOTE | 2023-02-02 14:49 | CT_ITS ---
PROCEDURE INFORMATION: Exam: CTA Right Upper Extremity With Contrast Exam date and time: 02/02/2023 3:17 PM Age: 47 years old Clinical indication: Upper arm; Right; Patient HX: PT had procedure in labor mediator today, C/O pain in RT arm since w arterial spasms, bicep is cold to touch and has swollen to an increase by 1 in diameter. ; Additional info: Swelling, pain TECHNIQUE: Imaging protocol: Computed tomographic angiography of the right upper extremity with contrast, including non-contrast images if performed. 3D rendering (Not supervised by radiologist): MIP and/or 3D reconstructed images were created by the technologist. Radiation optimization: All CT scans at this facility use at least one of these dose optimization techniques: automated exposure control; mA and/or kV adjustment per patient size (includes targeted exams where dose is matched to clinical indication); or iterative reconstruction. Contrast material: ISOVUE 370; Contrast volume: 100 ml; Contrast route: INTRAVENOUS (IV); REPORTING DATA: Count of CT and Cardiac NM exams in prior 12 months: This patient has received 0 known CTs and 0 known cardiac nuclear medicine studies in the 12 months prior to the current study. COMPARISON: CR XR CHEST PORTABLE 02/01/2023 2:48 PM FINDINGS: Right subclavian artery: No acute findings. No occlusion or significant stenosis. Axillary artery: No acute findings. No occlusion or significant stenosis. Brachial artery: No acute findings. No occlusion or significant stenosis. Radial artery: No acute findings. No occlusion or significant stenosis. Ulnar artery: No acute findings. No occlusion or significant stenosis. Soft tissues: Mild inflammatory changes in the region of the right axilla. For example series 1003, image 61 IMPRESSION: Visualized arterial supply of the right upper extremity is patent. No stenosis. No occlusion
--- NOTE | 2023-02-02 18:35 | PC.NURSE ---
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 VS stable and patient remained on room air. TR band in place, no bleeding noted. No hematoma at site. Patient complained of pain and tenderness at radial site but no changes noted. Patient began to complain of pain in right upper arm. Swelling and tightness noted at right bicep. Pulses weak but able to identify with doppler. MD notified and came to bedside. CTA ordered and Dr. Carrillo notified per MD. Morphine given for pain, patient began to feel shortness of breath and stated this has happened before with morphine. Breaths became apneic and patient had to be aroused multiple times. Oxygen saturations still high 90's. MD notified and dose readjusted. As patient became more alert and medication began to wear off patient's breathing became normal. Bicep measurements taken unchanged from measurements obtained prior in shift. Left bicep 10 inches, right bicep 12 inches
[2023-02-02 20:02] LABS: Chloride 99 mmol/L (98-107); Sodium 133 mmol/L (136-145)
[2023-02-02 20:03] LABS: Potassium 4.2 mmoL/L (3.5-5.1)
[2023-02-02 20:06] LABS: Anion Gap 15.2 mEq/L (5-15); Basophils % 0.2 % (0.1-2.0); Blood Urea Nitrogen 11 mg/dl (7-17); Calcium 9.6 mg/dl (8.4-10.2); Carbon Dioxide 23 mmol/L (22.0-30.0); Creatinine Clearance Estimated 65 mL/min (50-200); Eosinophils % 0.2 % (0.1-12.0); Estimated Glomerular Filt Rate 60 ml/min (>60); GFR (African American) 72 ML/MIN (>60); Glucose 117 mg/dl (74-100); Hematocrit 38.6 % (37.0-47.0); Lymphocytes # 1.2 K/mm3 (0.7-4.5); Lymphocytes % 10.3 % (10-50); Mean Corpuscular HGB Conc 32.7 g/dL (31.8-35.4); Mean Corpuscular Hemoglobin 30.8 pg (27.0-31.2); Mean Platelet Volume 8.6 fl (7.4-10.4); Monocytes # 0.5 K/mm3 (0.1-1.0); Monocytes % 4.3 % (1.7-9.3); Neutrophils # 10.2 K/mm3 (1.8-7.8); Platelet Count 335 K/mm3 (142-424); Red Cell Distribution Width 13.6 % (11.5-17.5)
[2023-02-02 20:07] LABS: Hemoglobin 12.7 g/dL (12.2-16.2); MANUAL DIFFERENTIAL MANUAL DIFFERENTIAL (MANUAL DIFF)
[2023-02-02 20:22] LABS: Lymphocytes % 12 % (10-50); Neutrophils % 88 % (42-76); Platelet Estimate Normal; RBC Morphology Normal; Total Cells Counted 100
[2023-02-03] VITALS (10 sets, daily range): BP systolic 122–151; BP diastolic 61–92; PULSE 60–78; RESP 18–19; TEMP 36.5–37.8; O2SAT 94–98; BMI 25.4
--- NOTE | 2023-02-03 03:37 | PC.NURSE ---
pt right arm continues to be swollen and tight, ABBY roxana has been to bedside several times to assess. pt c/o pain in right arm and has had medication per nov. arm has been elevated on a pillow and ice has been applied to upper arm on and off throughout the shift. bicep measurements are 10 inches on the left and 12 inches on the right. pulses can be identified using a doppler. dressing on cath site is cdi.
[2023-02-03 07:45] LABS: Basophils % 0.3 % (0.1-2.0); Eosinophils # 0.2 K/mm3 (0.0-0.4); Eosinophils % 1.4 % (0.1-12.0); Hemoglobin 12.4 g/dL (12.2-16.2); Lymphocytes # 2.4 K/mm3 (0.7-4.5); Lymphocytes % 20.2 % (10-50); Mean Corpuscular HGB Conc 32.8 g/dL (31.8-35.4); Mean Corpuscular Hemoglobin 30.4 pg (27.0-31.2); Mean Corpuscular Volume 92.7 fl (81-99); Mean Platelet Volume 8.6 fl (7.4-10.4); Monocytes # 0.6 K/mm3 (0.1-1.0); Neutrophils # 8.7 K/mm3 (1.8-7.8); Neutrophils % 73.1 % (37.0-80.0); Platelet Count 375 K/mm3 (142-424); Red Cell Distribution Width 13.7 % (11.5-17.5); White Blood Count 11.9 K/mm3 (4.8-10.8)
[2023-02-03 07:54] LABS: Anion Gap 15.6 mEq/L (5-15); Blood Urea Nitrogen 10 mg/dl (7-17); Calcium 9.1 mg/dl (8.4-10.2); Carbon Dioxide 24 mmol/L (22.0-30.0); Chloride 101 mmol/L (98-107); Creatinine Clearance Estimated 75 mL/min (50-200); Estimated Glomerular Filt Rate 67 ml/min (>60); GFR (African American) 82 ML/MIN (>60); Glucose 134 mg/dl (74-100); Potassium 3.6 mmoL/L (3.5-5.1); Sodium 137 mmol/L (136-145)
--- NOTE | 2023-02-03 12:11 | EXP.ACUTE.PN ---
Subjective *Date: 02/03/23 *Time: 12:11 Interval history: Patient did well overnight, right arm still swollen. Has developed bruising overnight in right axillary region. Circumferential remained stable. Bicep not as tight as yesterday. Continues to be painful for her. Slight drop in hemoglobin after cath procedure yesterday however remained stable this morning. Patient is afebrile and stable on room air. Denies any bowel movement since admission. No nausea or vomiting Medical Exam Vital signs and Labs for Last 24 Hours: Vital Signs Temp Pulse Pulse Resp BP Pulse Ox 02/03/23 11:28 97.9 F 02/03/23 11:24 100.1 F H 75 18 146/61 H 98 02/03/23 08:00 70 02/03/23 07:26 98.5 F 78 18 151/71 H 97 02/03/23 00:00 60 02/03/23 04:00 70 02/03/23 04:00 97.9 F 72 18 134/89 97 02/02/23 20:00 70 02/03/23 00:00 97.7 F 73 18 135/71 94 L 02/02/23 20:00 97.9 F 76 18 126/91 H 96 02/02/23 18:25 74 20 132/88 96 02/02/23 17:25 75 19 133/97 H 98 02/02/23 16:25 76 17 128/77 97 02/02/23 15:25 75 17 106/56 L 96 02/02/23 14:25 85 14 115/68 97 02/02/23 13:55 79 15 116/71 97 02/02/23 13:25 88 15 104/68 L 97 02/02/23 12:55 84 20 106/75 L 96 02/02/23 12:25 84 21 105/75 L 100 Intake and Output 02/02/23 02/03/23 02/03/23 23:59 07:59 15:59 Intake Total 740 / 740 Output Total 200 / 200 150 / 150 0 / 150 Balance -200 / 40 590 / 590 0 / 590 Intake: Intake, Oral Amount 240 / 240 Intake, Total IV Amount 500 / 500 Lactated Ringers 1000ML 1,000 500 / 500 ml @ 50 mls/hr IV .Q20H [facility] Rx# :[id number] Output: Output, Urine Amount 200 / 200 150 / 150 0 / 150 Other: Number of Unmeasured Voids 1 1 1 Weight 61.008 kg Patient Weight 02/03/23 23:59 Weight 61.008 kg Laboratory Results - last 24 hr 02/02/23 19:50: WBC 12.0 H D, RBC 4.10 L, Hgb 12.7 D, Hct 38.6, MCV 94.0, MCH 30.8, MCHC 32.7, RDW 13.6, Plt Count 335, MPV 8.6, Neut % (Auto) 85.0 H, Lymph % (Auto) 10.3, [place] % (Auto) 4.3, Eos % (Auto) 0.2, Baso % (Auto) 0.2, Neut # (Auto) 10.2 H, Lymph # (Auto) 1.2, [place] # (Auto) 0.5, Eos # (Auto) 0.0, Baso # (Auto) 0.0, Total Counted 100, Neutrophils % (Manual) 88 H, Lymphocytes % (Manual) 12, Platelet Estimate Normal, RBC Morphology Normal 02/02/23 19:50: Sodium 133 L, Potassium 4.2, Chloride 99, Carbon Dioxide 23, Anion Gap 15.2 H, BUN 11, Creatinine 1.00, Estimated Creat Clear 65, Estimated GFR 60, Est GFR ( Amer) 72, Glucose 117 H, Calcium 9.6 02/03/23 07:23: WBC 11.9 H, RBC 4.10 L, Hgb 12.4, Hct 38.0, MCV 92.7, MCH 30.4, MCHC 32.8, RDW 13.7, Plt Count 375, MPV 8.6, Neut % (Auto) 73.1, Lymph % (Auto) 20.2, [place] % (Auto) 5.0, Eos % (Auto) 1.4, Baso % (Auto) 0.3, Neut # (Auto) 8.7 H, Lymph # (Auto) 2.4, [place] # (Auto) 0.6, Eos # (Auto) 0.2, Baso # (Auto) 0.0 02/03/23 07:23: Sodium 137, Potassium 3.6, Chloride 101, Carbon Dioxide 24, Anion Gap 15.6 H, BUN 10, Creatinine 0.90, Estimated Creat Clear 75, Estimated GFR 67, Est GFR ( Amer) 82, Glucose 134 H, Calcium 9.1 I & O for Labs for Last 24 Hours: Intake & Output 01/31/23 02/01/23 02/02/23 02/03/23 23:59 23:59 23:59 23:59 Intake Total 240 / 240 740 / 740 Output Total 150 / 150 200 / 200 150 / 150 Balance -150 / -150 40 / 40 590 / 590 Weight 61.235 kg 58.769 kg 61.008 kg Microbiology Reports for the Last 24 Hours: Microbiology 02/01/23 Unknown Urine,Clean Catch Urine Culture - Preliminary Constitutional: Present no acute distress, average body habitus, chronically ill appearing and disheveled Head: Present atraumatic and normocephalic ENT: Present mucous membranes moist Comment:: poor dentition with broken teeth at gum line Neck: Present normal inspection Respiratory: Present normal respiratory effort; Absent rhonchi, wheezes or crackles Cardiac: Present Reg Rate and Rhythm GI: Present soft and normal bowel
--- NOTE | 2023-02-03 16:17 | PC.NURSE ---
Right bicep measures 12inches during shift. Bruising posterior of bicep noted. Radial and ulnar pulses palpable. Patient complained of some burning pain in right arm, MD notified and lidocaine patch ordered. Radial site dressing clean dry and intact.
[2023-02-04] VITALS: BP 140/76; PULSE 70; PULSE 88; RESP 19; TEMP 36.6; O2SAT 96
[2023-02-04 04:00] VITALS: BP 163/100; PULSE 80; PULSE 94; RESP 20; TEMP 36.7; O2SAT 98; BMI 24.9
[2023-02-04 07:10] LABS: Alanine Aminotransferase 59 U/L (12-78); Albumin Level 3.7 g/dl (3.5-5.0); Albumin/Globulin Ratio 1.1 (1.1-1.8); Alkaline Phosphatase 123 U/L (38-126); Anion Gap 11.7 mEq/L (5-15); Aspartate Amino Transferase 58 U/L (14-36); Bilirubin,Total 0.8 mg/dl (0.2-1.3); Blood Urea Nitrogen 9 mg/dl (7-17); Calcium 9.3 mg/dl (8.4-10.2); Carbon Dioxide 25 mmol/L (22.0-30.0); Chloride 104 mmol/L (98-107); Creatinine Clearance Estimated 74 mL/min (50-200); Estimated Glomerular Filt Rate 67 ml/min (>60); GFR (African American) 82 ML/MIN (>60); Globulin 3.5 g/dL (1.3-3.2); Glucose 114 mg/dl (74-100); Magnesium 1.8 mg/dl (1.6-2.3); Potassium 3.7 mmoL/L (3.5-5.1); Sodium 137 mmol/L (136-145); Total Protein,Serum 7.2 g/dl (6.3-8.2)
[2023-02-04 07:13] LABS: Basophils % 0.3 % (0.1-2.0); Eosinophils # 0.2 K/mm3 (0.0-0.4); Eosinophils % 1.5 % (0.1-12.0); Hematocrit 38.9 % (37.0-47.0); Hemoglobin 12.7 g/dL (12.2-16.2); Lymphocytes # 1.7 K/mm3 (0.7-4.5); Lymphocytes % 14.6 % (10-50); Mean Corpuscular HGB Conc 32.6 g/dL (31.8-35.4); Mean Corpuscular Hemoglobin 30.3 pg (27.0-31.2); Mean Platelet Volume 9.2 fl (7.4-10.4); Monocytes # 0.6 K/mm3 (0.1-1.0); Monocytes % 5.1 % (1.7-9.3); Neutrophils # 8.8 K/mm3 (1.8-7.8); Neutrophils % 78.5 % (37.0-80.0); Platelet Count 372 K/mm3 (142-424); Red Blood Count 4.18 M/mm3 (4.20-5.40); Red Cell Distribution Width 13.7 % (11.5-17.5); White Blood Count 11.3 K/mm3 (4.8-10.8)
[2023-02-04 08:00] VITALS: BP 121/85; PULSE 81; RESP 20; TEMP 37.1; O2SAT 98
--- NOTE | 2023-02-04 10:35 | P.CONPHA_ITS ---
[facility] Commercial Solar Sales Consultant Discharge Med Pattern Maker Programer: Tamar Murillo has received discharge medication counseling on the following medications: -aspirin: 81 mg chewable tab -tylenol: 650 mg every 6 hours as needed. Patient wanted to know how often she could take it and said her arm had been in a lot of pain. -lisinopril: 20 mg daily. Told of potential side effect of dry cough and to let her provider know if she experienced this or any dizziness, especially upon standing up. -Brilinta: 90 mg twice daily. Told patient to watch for signs of bleeding such as bruising or blood in the stool and inform her provider if this was occurring. -senna/docusate: 1 tab daily. Told her to watch for potential side effects of diarrhea or stomach upset. -bisoprolol: 5 mg daily. Told of possible side effects of headache and/or dizziness and told her to inform her provider if these were frequent or didn't go away. -atorvastatin: 20 mg daily at bedtime. Told her to let her provider know if she was experiencing any abnormal muscle pains after starting it. Told her it was possible to reduce the dose or change to a different statin to avoid this side effect if it occurred. Patient was told to stop: -cefdinir: patient seemed confused when I mentioned stopping the cefdinir. I told her it was an antibiotic she had received last week for a COPD exacerbation, but she said she had no recollection of taking it. I told her not to take it if she happened to find the bottle at home. Patient verbalized understanding and had no further questions.
--- NOTE | 2023-02-04 11:13 | EXP.CARD.CON ---
History of Present Illness History of Present Illness Consult date: 02/04/23 Requesting physician: Matti Underwood Chief complaint: chest pain History of present illness: This is a 47-year-old white female who who presented to the emergency department complaints of chest pain. The patient has a past medical history of asthma, tobacco abuse, chronic pancreatitis, and hepatitis C. The patient was seen by her doctor and sent to the emergency department on Saturday for her chest pain. The patient states that she was having pressure-like sensation in the center of her chest that did not radiate. She states that this was a severe pain. It was associated with shortness of breath. The patient stated that her pain subsided on the way to the emergency department but still came in to be checked out. The patient smokes a pack per day. She also reported being homeless. When she got to the emergency department she had an elevated troponin consistent with a non-STEMI. The patient received Brilinta and aspirin in the emergency department and then was taken to the Information Writer on Saturday morning. The patient had critical mid LAD disease. She had 2 stents placed to the mid LAD. She has persistent disease in the right coronary artery. The patient had a normal ejection fraction and mildly elevated LVEDP. Medical management was favored for the right coronary artery. During her cath the patient did have a significant spasm of the right radial artery. She received greater than 5000 mcg of intra-arterial nitroglycerin with no improvement in the spasm. Following the procedure the patient did have a swollen right upper extremity and pain. CT of the arm showed no occlusion or thrombus. She did have a radial duplex today that shows no pseudoaneurysm or occlusion. She does have a small hematoma. This morning she denies any chest pain or pressure. She denies any shortness of breath. She denies any fever, chills, nausea, vomiting, diarrhea, PND orthopnea. [facility] Disclaimer: The information contained in this section may have been updated after the patient was seen, as this information can be updated by other users. Medical History (Updated 02/04/23 @ 11:22 by Tangela Real APRN) CAD (coronary artery disease) Chest pain COPD (chronic obstructive pulmonary disease) Elevated liver enzymes Heart murmur Hepatitis C History of cardiomyopathy History of encephalopathy Hx of pancreatitis Hypertensive emergency Neoplasm of uncertain behavior of neck Non-ST elevation VT (NSTEMI) Pancreatitis Unsteady gait when walking Surgical History (Updated 02/04/23 @ 11:21 by Tangela Real APRN) Hx of cholecystectomy Stented coronary artery Social History (Updated 02/01/23 @ 16:57 by Telma Meeks RN) Smoking Status: Current every day smoker tobacco type: cigarettes packs per day: 1 alcohol intake: never current occupational status: unemployed Travel in the last 8 weeks: None Review of Systems Review of Systems Review of systems:: pertinent systems reviewed and negative unless documented below Constitutional Constitutional: Reports system reviewed and no additional complaints, except as documented Eyes Eyes: Reports system reviewed and no additional complaints, except as documented ENT Ears, Nose, Mouth, and Throat: Reports system reviewed and no additional complaints, except as documented *Cardiovascular Cardiovascular: Reports system reviewed and no additional complaints, except as documented *Respiratory Respiratory: Reports system reviewed and no additional complaints, except as documented *Gastrointestinal Gastrointestinal: Reports system reviewed and no additional complaints, except as documented *Genitourinary Genitourinary: Reports system reviewed and no additional complaints, except as documented *Musculoskeletal Musculoskeletal: Reports system reviewed and no additional complaints, except as documented Comments: Pain in the left arm and swelling which h
--- NOTE | 2023-02-04 14:20 | SW/DCPLANNER ---
I have arranged [employer] for this patient.
--- NOTE | 2023-02-04 15:33 | CA_ITS ---
FINAL REPORT TECHNIQUE: Limited duplex Doppler imaging of the right upper extremity was obtained. CLINICAL HISTORY: hematoma, swelling, cath 02/02/23 with right radial access. Extensive bruising right upper extremity with pain noted to touch. FINDINGS: There is no evidence of pseudoaneurysm or occlusion. A 2 cm heterogeneous area is seen in the medial right wrist which may represent hematoma. IMPRESSION: No evidence of pseudoaneurysm or occlusion. 2 cm heterogeneous area which may represent hematoma in the medial right wrist. Reviewed, Interpreted and Dictated by Ezio Encinas III, MD Transcribed by Brittani Null Authenticated and [facility]
--- NOTE | 2023-02-05 14:15 | CARE MANAGER ---
Attempted post-discharge follow-up phone call, no answer.
[2023-02-05 16:41] LABS: HBsAg Screen Negative (Negative); HCV Ab Reactive (Non Reactive); Hep A Ab, IGM Negative (Negative); Hep B Core Ab, IgM Negative (Negative)
--- NOTE | 2023-02-06 11:23 | CARE MANAGER ---
Unable to reach patient via phone to discuss recent discharge.
== END 2023-02-04 16:00 | disposition home or self-care (01) | DRG 247 ==
LOC: ER 15:49 → 2ND 18:29
PROVIDERS: Internal Medicine; Nurse Practitioner Acute Care; Admitting Provider Internal Medicine Adolescent Medicine; Emergency Provider Student in an Organized Health Care Education/Training Program; Visit Provider Internal Medicine Adolescent Medicine
PROC: 027035Z Dilation of Coronary Artery, One Artery with Two Drug-eluting Intraluminal Devices, Percutaneous Approach (ICD-10-PCS; principal; 2023-02-02 10:00)
DX: I21.4 Non-ST elevation (NSTEMI) myocardial infarction (principal); I42.9 Cardiomyopathy, unspecified; F17.210 Nicotine dependence, cigarettes, uncomplicated; J44.9 Chronic obstructive pulmonary disease, unspecified; F10.21 Alcohol dependence, in remission; I25.10 Atherosclerotic heart disease of native coronary artery without angina pectoris; B19.20 Unspecified viral hepatitis C without hepatic coma
CPT/HCPCS: 36415; 71045; 73206; 80048; 80053; 80061; 80074; 80305; 81001; 82150; 82607; 82746; 83036; 83735; 84443; 84484; 85007; 85025; 85347; 85378; 86703; 87086; 87636; 93005; 93306; 93931; 99152; 99153; 99285; C1725; C1769; C1876; C9803; G0432; J1644; Q9967; U0003; U0005

== ENCOUNTER 2023-02-06 00:51 | Emergency (ER) | payer MEDICAID, SELFPAY ==
[2023-02-06 00:54] VITALS: BP 155/99; PULSE 101; RESP 21; TEMP 37; O2SAT 100; BMI 25.4
[2023-02-06 01:31] LABS: Microscopic, Urine URINE MICROSCOPIC (MICROSCOPIC)
[2023-02-06 01:36] LABS: Appearance,Urine CLEAR (Clear); Bilirubin,Urine Negative (Negative); Blood, Urine Negative (Negative); Color,Urine YELLOW (Yellow); Glucose,Urine (UA) Negative (Negative); Ketones,Urine Negative (Negative); Leukocyte Esterase,Urine 2+ (Negative); Nitrate,Urine Negative (Negative); Protein,Urine Negative (Negative)
[2023-02-06 01:51] LABS: Bacteria,Urine 4+ /lpf; Trichomonas,Urine Occasional /lpf
--- NOTE | 2023-02-06 02:08 | PC.NURSE ---
updated one of pt's daughters on POC and tests completed
[2023-02-06 02:11] LABS: Ammonia < 9 umol/L (9-30); Lactic Acid 1.3 mmol/L (0.7-2.1)
[2023-02-06 02:18] LABS: Chloride 96 mmol/L (98-107); Potassium 4.1 mmoL/L (3.5-5.1); Sodium 137 mmol/L (136-145)
[2023-02-06 02:20] LABS: Blood Urea Nitrogen 8 mg/dl (7-17); Creatinine Clearance Estimated 68 mL/min (50-200); Estimated Glomerular Filt Rate 60 ml/min (>60); GFR (African American) 72 ML/MIN (>60)
[2023-02-06 02:21] LABS: Alanine Aminotransferase 51 U/L (12-78); Albumin Level 4.4 g/dl (3.5-5.0); Albumin/Globulin Ratio 1.2 (1.1-1.8); Alkaline Phosphatase 128 U/L (38-126); Anion Gap 18.1 mEq/L (5-15); Aspartate Amino Transferase 48 U/L (14-36); Bilirubin,Total 0.7 mg/dl (0.2-1.3); Carbon Dioxide 27 mmol/L (22.0-30.0); Globulin 3.8 g/dL (1.3-3.2); Glucose 93 mg/dl (74-100); Total Protein,Serum 8.2 g/dl (6.3-8.2)
[2023-02-06 02:27] LABS: C-Reactive Protein 21.5 mg/L (0-4)
[2023-02-06 02:28] LABS: Basophils % 0.4 % (0.1-2.0); Eosinophils # 0.1 K/mm3 (0.0-0.4); Eosinophils % 1.5 % (0.1-12.0); Hemoglobin 13.5 g/dL (12.2-16.2); Lymphocytes # 1.5 K/mm3 (0.7-4.5); Lymphocytes % 17.7 % (10-50); Mean Corpuscular HGB Conc 32.9 g/dL (31.8-35.4); Mean Corpuscular Hemoglobin 30.8 pg (27.0-31.2); Mean Corpuscular Volume 93.8 fl (81-99); Mean Platelet Volume 9.2 fl (7.4-10.4); Monocytes # 0.5 K/mm3 (0.1-1.0); Monocytes % 6.1 % (1.7-9.3); Neutrophils # 6.3 K/mm3 (1.8-7.8); Neutrophils % 74.3 % (37.0-80.0); Platelet Count 448 K/mm3 (142-424); Red Blood Count 4.37 M/mm3 (4.20-5.40); Red Cell Distribution Width 13.8 % (11.5-17.5); White Blood Count 8.5 K/mm3 (4.8-10.8)
--- NOTE | 2023-02-06 02:31 | HMH.EDSKAF ---
Discharge Plan Disposition Patient Disposition: Home, Self-Care Prescriptions Prescriptions: New levofloxacin 500 mg tablet 500 mg PO DAILY Qty: 7 0RF metronidazole 500 mg Tablet 500 mg PO TID Qty: 21 0RF No Action albuterol sulfate [Ventolin HFA] 90 mcg/actuation HFA aerosol inhaler 2 puff INHALATION Q4HP PRN (Reason: Shortness Of Breath) lisinopril 20 mg Tablet 20 mg PO DAILY 30 Days Qty: 30 0RF aspirin 81 mg Tablet,Chewable 81 mg PO DAILY 30 Days Qty: 30 0RF Brilinta 90 mg Tablet 90 mg PO BID 30 Days Qty: 60 0RF atorvastatin 20 mg Tablet 20 mg PO HS 30 Days Qty: 30 0RF sennosides-docusate sodium [Stool Softener-Stimulant Laxat] 8.6-50 mg Tablet 1 tab PO DAILY 10 Days Qty: 10 0RF acetaminophen 325 mg Tablet 650 mg PO Q6HP PRN (Reason: Fever Or Mild Pain) 10 Days Qty: 60 0RF bisoprolol fumarate 5 mg Tablet 5 mg PO DAILY 30 Days Qty: 30 0RF Referrals Follow up/Referrals: Jannette Howell APRN [Nurse Practitioner] - See instructions Rom Alberto MD [Staff Physician] - See instructions Clinical Impressions Clinical Impression: CAD (coronary artery disease), Traumatic ecchymosis of right upper arm, UTI (urinary tract infection), Trichomonas infection, Hypertension Instructions Patient Instructions: DI for Urinary Tract Infection (UTI) Discharge ED Provider: Precious (ED)Omar Skin/Abscess/FB HPI General Chief complaint: Skin/Abscess/Foreign Body Stated complaint: Right arm swollen and purple from heart cath Time Seen by Provider: 02/06/23 01:30 Mode of Arrival: Family Vehicle Source of Information: Patient, Relative and Medical Record Limitations: No Limitations Description of Symptoms (Recalled from ER Triage Doc. by RN): Pt c/o RUE swelling & bruising. States she had a heart cath Sat (02/01) here. States 2 stents were placed. She had significant bruising but the swelling and pain increased since yesterday. Her family is also concerned she is having confused thoughts. DROP WIRER to R hand 3 sec and pradial pulse 1+. Denies any chest pain. She does note occasional SOA with exterion. Denies dyspnea and n/v/d. History of Present Illness HPI narrative: recent rt heart cath with stents - swelling and bruising rt wrist - pt with reported confusion - no chest pain- pt reports using meds - discussed with family MD complaint: other Onset (ago): day(s) Related Data Home Medications Medication Instructions Recorded Confirmed albuterol sulfate 90 mcg/actuation 2 puff inhalation Q4HP PRN 02/02/23 02/02/23 aerosol inhaler (Ventolin HFA) Shortness Of Breath Previous Rx's Medication Instructions Recorded aspirin 81 mg chewable tablet 81 mg PO DAILY 30 days #30 tabs 02/02/23 lisinopril 20 mg tablet 20 mg PO DAILY 30 days #30 tabs 02/02/23 ticagrelor 90 mg tablet (Brilinta) 90 mg PO BID 30 days #60 tabs 02/02/23 acetaminophen 325 mg tablet 650 mg PO Q6HP PRN Fever Or Mild 02/04/23 Pain 10 days #60 tabs atorvastatin 20 mg tablet 20 mg PO HS 30 days #30 tabs 02/04/23 bisoprolol fumarate 5 mg tablet 5 mg PO DAILY 30 days #30 tabs 02/04/23 sennosides 8.6 mg-docusate sodium 1 tab PO DAILY 10 days #10 tabs 02/04/23 50 mg tablet (Stool Softener-Stimulant Laxative) levofloxacin 500 mg tablet 500 mg PO DAILY #7 tabs 02/06/23 metronidazole 500 mg tablet 500 mg PO TID #21 tabs 02/06/23 Allergies Allergy/AdvReac Type Severity Reaction Status Date / Time Penicillins Allergy Intermediate Unknown Verified 02/02/23 10:38 allergy reaction [facility] Disclaimer: The information contained in this section may have been updated after the patient was seen, as this information can be updated by other users. Medical History (Updated 02/06/23 @ 04:50 by Omar Lang (ED)MD) Alcohol intoxication CAD (coronary artery disease) Chest pain COPD (chronic obstructive pulmonary disease) Elevated liver enzymes Heart murmur Hepatitis C History of cardiomyopathy Hist
[2023-02-06 02:34] LABS: NT Pro Brain Natriuretic Pep. 622 pg/mL (0-125)
[2023-02-06 02:37] LABS: Urine Pregnancy, HCG Qual. Negative (Negative)
[2023-02-06 02:49] LABS: Amylase 59 U/L (30-110); Lipase 56 U/L (23-300)
[2023-02-06 02:52] LABS: Ethyl Alcohol < 10 mg/dl (0-10)
[2023-02-06 03:12] LABS: Erythrocyte Sedimentation Rate 50 mm/hr (0-20)
[2023-02-06 03:34] LABS: Procalcitonin 0.097 ng/mL (0.0-2.0)
[2023-02-06 04:41] VITALS: BP 164/98; PULSE 87; RESP 18; TEMP 36.9; O2SAT 97
== END 2023-02-06 04:50 | disposition home or self-care (01) ==
PROVIDERS: Emergency Provider Emergency Medicine
DX: S40.021A Contusion of right upper arm, initial encounter (principal); S60.211A Contusion of right wrist, initial encounter; I25.10 Atherosclerotic heart disease of native coronary artery without angina pectoris; N39.0 Urinary tract infection, site not specified; A59.9 Trichomoniasis, unspecified; I10 Essential (primary) hypertension; F17.210 Nicotine dependence, cigarettes, uncomplicated; X58.XXXA Exposure to other specified factors, initial encounter
CPT/HCPCS: 80053; 81001; 81025; 82140; 82150; 83605; 83690; 83880; 84145; 85025; 85651; 86140; 87086; 87088; 87186; 96360; 96361; 99284; 99285

== ENCOUNTER 2023-02-08 14:24 | Emergency (ER) | payer MEDICAID, SELFPAY ==
[2023-02-08] VITALS (8 sets, daily range): BP systolic 165–205; BP diastolic 98–132; PULSE 66–80; RESP 17–20; TEMP 36.6–36.7; O2SAT 97–100; BMI 25.1
--- NOTE | 2023-02-08 | ECG_ITS ---
APPROVED REPORT Exam: Resting ECG HR:72 bpm ECG Measurements Heart Rate 72 AXES CO 158 P 55 QRSd 92 QRS -21 QT 352 T 97 QTc 377 Conclusion SINUS RHYTHM BORDERLINE LEFT AXIS DEVIATION [QRS AXIS < -20] ST DEVIATION AND MODERATE T-WAVE ABNORMALITY, CONSIDER LATERAL ISCHEMIA [-0.1+ mV T-WAVE IN I/aVL/V5/V6] ABNORMAL ECG UNCONFIRMED REPORT Electronically signed by : Anshul Aguilera MD 02/09/2023 07:13:33
--- NOTE | 2023-02-08 14:26 | HMH.EDGENADL ---
Discharge Plan Disposition Patient Disposition: Home, Self-Care Prescriptions Prescriptions: No Action atorvastatin 20 mg tablet 20 mg PO HS lisinopril 20 mg tablet 20 mg PO DAILY sennosides-docusate sodium [Stool Softener-Stimulant Laxat] 8.6-50 mg tablet 1 tab PO DAILY metronidazole 500 mg tablet 500 mg PO TID bisoprolol fumarate 5 mg tablet 5 mg PO DAILY aspirin 81 mg tablet,chewable 81 mg PO DAILY levofloxacin 500 mg tablet 500 mg PO DAILY Brilinta 90 mg tablet 90 mg PO BID albuterol sulfate [Ventolin HFA] 90 mcg/actuation HFA aerosol inhaler 2 puff INHALATION Q4HP PRN (Reason: Shortness Of Breath) acetaminophen 325 mg Tablet 650 mg PO Q6HP PRN (Reason: Fever Or Mild Pain) 10 Days Qty: 60 0RF Referrals Follow up/Referrals: Houston Carrillo MD [Staff Physician] - See instructions (next week ) Activity Restrictions/Add. Instructions Additional Instructions/Restrictions: Please take your aspirin and Brilinta as you were instructed in the hospital and return to the emergency part with any worsening symptoms otherwise follow with Dr. Carrillo next week. Clinical Impressions Clinical Impression: Chest pain Discharge ED Provider: Stef Claros General Adult HPI General Chief complaint: Chest Pain Stated complaint: chest pain Time Seen by Provider: 02/08/23 14:26 History of Present Illness HPI narrative: Patient is a 47-year-old female with known history of coronary artery disease presenting today to the emergency department for the third time in the last 7 days. I saw her on 519 she was admitted with an NSTEMI and taken to the [facility] had a mid LAD occlusion with a stent that was placed. Her hospitalization was complicated by right upper extremity ecchymosis and swelling. A CTA was performed as well as an ultrasound which did not show any active extravasation thrombus or pseudoaneurysm. This was improving upon discharge and this is not an acute complaint for the patient today. Patient returned on 02/06 for chest pain had another work-up that was done at that time which was negative. She presents today with chest pain shortness of breath is been ongoing for the last several hours and states that it feels like heartburn this time and is different in nature in comparison with the pain she presented with last week when she had the NSTEMI. Of note she did not start her aspirin or Brilinta after being discharged. Related Data Home Medications Medication Instructions Recorded Confirmed albuterol sulfate 90 mcg/actuation 2 puff inhalation Q4HP PRN 02/02/23 02/08/23 aerosol inhaler (Ventolin HFA) Shortness Of Breath aspirin 81 mg chewable tablet 81 mg PO DAILY Infection 02/08/23 02/08/23 atorvastatin 20 mg tablet 20 mg PO HS Cholesterol 02/08/23 02/08/23 bisoprolol fumarate 5 mg tablet 5 mg PO DAILY Heart rhythm 02/08/23 02/08/23 levofloxacin 500 mg tablet 500 mg PO DAILY Infection 02/08/23 02/08/23 lisinopril 20 mg tablet 20 mg PO DAILY High blood pressure 02/08/23 02/08/23 metronidazole 500 mg tablet 500 mg PO TID Infection 02/08/23 02/08/23 sennosides 8.6 mg-docusate sodium 1 tab PO DAILY Constipation 02/08/23 02/08/23 50 mg tablet (Stool Softener-Stimulant Laxative) ticagrelor 90 mg tablet (Brilinta) 90 mg PO BID Infection 02/08/23 02/08/23 Previous Rx's Medication Instructions Recorded acetaminophen 325 mg tablet 650 mg PO Q6HP PRN Fever Or Mild 02/04/23 Pain 10 days #60 tabs Allergies Allergy/AdvReac Type Severity Reaction Status Date / Time Penicillins Allergy Intermediate Unknown Verified 02/07/23 12:58 allergy reaction [facility] Disclaimer: The information contained in this section may have been updated after the patient was seen, as this information can be updated by other users. Medical History (Updated 02/08/23 @ 18:19 by Stef Claros MD) Alcohol intoxication CAD (coronary artery disease) Chest pa
--- NOTE | 2023-02-08 14:29 | XR_ITS ---
FINAL REPORT CLINICAL HISTORY: dyspnea FINDINGS: SINGLE VIEW CHEST The heart size is normal. The mediastinum is within normal limits. No acute pulmonary abnormality is identified. There is no evidence of pneumothorax. The bony thorax is intact. IMPRESSION: No acute cardiopulmonary process. Reviewed, Interpreted and Dictated by Eizo Encinas III, MD Transcribed by Flory Duque Authenticated and [facility]
[2023-02-08 14:54] LABS: Chloride 104 mmol/L (98-107); Potassium 3.6 mmoL/L (3.5-5.1); Sodium 138 mmol/L (136-145)
[2023-02-08 14:57] LABS: Alanine Aminotransferase 33 U/L (12-78); Albumin Level 4.1 g/dl (3.5-5.0); Alkaline Phosphatase 109 U/L (38-126); Anion Gap 11.6 mEq/L (5-15); Aspartate Amino Transferase 34 U/L (14-36); Bilirubin,Total 0.8 mg/dl (0.2-1.3); Blood Urea Nitrogen 9 mg/dl (7-17); Calcium 9.9 mg/dl (8.4-10.2); Carbon Dioxide 26 mmol/L (22.0-30.0); Creatinine Clearance Estimated 74 mL/min (50-200); Estimated Glomerular Filt Rate 67 ml/min (>60); GFR (African American) 82 ML/MIN (>60); Glucose 103 mg/dl (74-100); Total Protein,Serum 8.1 g/dl (6.3-8.2)
[2023-02-08 15:02] LABS: Activated Partial Thrombo Time 31.5 seconds (22.8-30.6); INR 1.02 (0.9-1.1)
[2023-02-08 15:07] LABS: NT Pro Brain Natriuretic Pep. 850 pg/mL (0-125)
[2023-02-08 15:09] LABS: Troponin I 0.07 ng/ml (0.00-0.034)
[2023-02-08 15:12] LABS: Basophils % 0.4 % (0.1-2.0); Eosinophils # 0.2 K/mm3 (0.0-0.4); Eosinophils % 2.2 % (0.1-12.0); Hematocrit 39.3 % (37.0-47.0); Hemoglobin 12.5 g/dL (12.2-16.2); Lymphocytes # 1.3 K/mm3 (0.7-4.5); Lymphocytes % 13.2 % (10-50); Mean Corpuscular HGB Conc 31.8 g/dL (31.8-35.4); Mean Corpuscular Hemoglobin 30.2 pg (27.0-31.2); Mean Corpuscular Volume 94.9 fl (81-99); Mean Platelet Volume 8.4 fl (7.4-10.4); Monocytes # 0.5 K/mm3 (0.1-1.0); Neutrophils # 7.6 K/mm3 (1.8-7.8); Neutrophils % 79.1 % (37.0-80.0); Platelet Count 422 K/mm3 (142-424); Red Blood Count 4.14 M/mm3 (4.20-5.40); Red Cell Distribution Width 13.9 % (11.5-17.5); White Blood Count 9.6 K/mm3 (4.8-10.8)
--- NOTE | 2023-02-08 15:52 | PC.NURSE ---
spoke with Dr Carrillo
--- NOTE | 2023-02-08 16:44 | PC.NURSE ---
CHECKED ON PT STATED HER RIGHT ARE WAS HURTING RELAYED MESSAGE TO ER [facility] AT BEDSIDE
--- NOTE | 2023-02-08 16:52 | PC.NURSE ---
pts daughter natalie called, states she has small children and she is pts ride home. Natlaie requests well call her when pt is ready for d/c. Number verified with what is in pts chart.
--- NOTE | 2023-02-08 17:27 | PC.NURSE ---
green top sent to lab for second troponin
[2023-02-08 17:52] LABS: Troponin I 0.09 ng/ml (0.00-0.034)
--- NOTE | 2023-02-08 18:16 | PC.NURSE ---
Dr Claros speaking with Dr Carrillo
== END 2023-02-08 18:28 | disposition home or self-care (01) ==
PROVIDERS: Emergency Provider Student in an Organized Health Care Education/Training Program
DX: R07.9 Chest pain, unspecified (principal); R06.02 Shortness of breath; I25.10 Atherosclerotic heart disease of native coronary artery without angina pectoris; I25.2 Old myocardial infarction; F17.210 Nicotine dependence, cigarettes, uncomplicated
CPT/HCPCS: 71045; 80053; 83880; 84484; 85025; 85610; 85730; 93005; 99285

== ENCOUNTER → 2023-02-19 14:46 | Outpatient (CLI) | payer MEDICAID, SELFPAY ==
--- NOTE | 2023-02-19 14:50 | US_ITS ---
FINAL REPORT CLINICAL HISTORY: neoplasm of uncertain behavior of neck COMPARISON: None FINDINGS: ULTRASOUND SOFT TISSUE NECK Sonographic images of the bilateral neck were obtained. Submandibular and right parotid glands are unremarkable. In the left parotid gland is an 8 mm nodule which could be due to pleomorphic adenopathy, Warthin's tumor, small lymph node, or complex parotid cyst. A few adjacent normal lymph nodes are seen. IMPRESSION: Subcentimeter benign-appearing left parotid nodule as above. Recommend continued follow-up in 6 months. Reviewed, Interpreted and Dictated by Adela Rivas MD Transcribed by Annamarie Nole Authenticated and [facility]
== END ==
PROVIDERS: PCP Nurse Practitioner; Visit Provider Nurse Practitioner
DX: D48.7 Neoplasm of uncertain behavior of other specified sites (principal)
CPT/HCPCS: 76536

== ENCOUNTER → 2023-03-26 09:16 | Outpatient (CLI) | payer MEDICAID, SELFPAY ==
--- NOTE | 2023-03-26 09:41 | MR_ITS ---
FINAL REPORT CLINICAL HISTORY: CVA. ABNORMAL GAIT, SLURRED SPEECH, BLURRED VISION. FINDINGS: Multiplanar MR imaging of the brain was performed without and with contrast. Motion artifact is noted on some of the images. There is confluent abnormal T2 signal in the bilateral cerebral white matter. Small cystic areas are seen in the bilateral periventricular regions. Abnormal T2 signal is seen in the le[place] and midbrain. There is no evidence of intracranial hemorrhage or mass. No abnormal extra-axial fluid collection is seen. The ventricular size is within normal limits. There is no evidence of shift of the midline structures. The posterior fossa and brainstem have an unremarkable appearance. No area of abnormal restricted diffusion is identified. No abnormal contrast enhancement is seen. Normal major vessel vascular flow voids are noted. IMPRESSION: Widespread abnormal T2 signal in the white matter which may represent chronic multiple sclerosis or severe chronic ischemic/gliotic changes. No acute infarct identified. Authenticated and [facility]
--- NOTE | 2023-03-26 09:41 | MR_ITS ---
FINAL REPORT CLINICAL HISTORY: CVA. ABNORMAL GAIT, SLURRED SPEECH, BLURRED VISION. FINDINGS: Multiple projection images of the brain arterial vasculature were obtained without contrast. The raw data images were also reviewed. The distal internal carotid, distal vertebral and basilar arteries have an unremarkable appearance without evidence of significant stenosis or occlusion. The proximal anterior, middle and posterior cerebral arteries have an unremarkable appearance. There is no evidence of significant stenosis or major branch occlusion. No aneurysm or vascular malformation is identified. IMPRESSION: Unremarkable MR angiogram of the head. Authenticated and [facility]
[2023-03-26 09:53] LABS: Basophils # 0.1 K/mm3 (0-0.2); Basophils % 0.8 % (0.1-2.0); Eosinophils # 0.4 K/mm3 (0.0-0.4); Eosinophils % 5.1 % (0.1-12.0); Hematocrit 45.2 % (37.0-47.0); Hemoglobin 14.5 g/dL (12.2-16.2); Lymphocytes % 28.3 % (10-50); Mean Corpuscular Hemoglobin 29.4 pg (27.0-31.2); Mean Corpuscular Volume 91.7 fl (81-99); Mean Platelet Volume 8.6 fl (7.4-10.4); Monocytes # 0.4 K/mm3 (0.1-1.0); Neutrophils # 4.3 K/mm3 (1.8-7.8); Neutrophils % 59.7 % (37.0-80.0); Platelet Count 321 K/mm3 (142-424); Red Blood Count 4.93 M/mm3 (4.20-5.40); Red Cell Distribution Width 13.7 % (11.5-17.5); White Blood Count 7.2 K/mm3 (4.8-10.8)
[2023-03-26 10:18] LABS: Chloride 104 mmol/L (98-107); Potassium 4.3 mmoL/L (3.5-5.1); Sodium 141 mmol/L (136-145)
[2023-03-26 10:21] LABS: Alanine Aminotransferase 115 U/L (12-78); Albumin Level 4.1 g/dl (3.5-5.0); Albumin/Globulin Ratio 1.1 (1.1-1.8); Alkaline Phosphatase 112 U/L (38-126); Anion Gap 12.3 mEq/L (5-15); Aspartate Amino Transferase 92 U/L (14-36); Bilirubin,Total 0.3 mg/dl (0.2-1.3); Blood Urea Nitrogen 7 mg/dl (7-17); Carbon Dioxide 29 mmol/L (22.0-30.0); Estimated Glomerular Filt Rate 67 ml/min (>60); GFR (African American) 81 ML/MIN (>60); Globulin 3.7 g/dL (1.3-3.2); Total Protein,Serum 7.8 g/dl (6.3-8.2)
[2023-03-26 10:22] LABS: Calcium 10.3 mg/dl (8.4-10.2); Glucose 86 mg/dl (74-100)
[2023-03-26 11:30] LABS: Vitamin B12 373 pg/mL (239-931)
[2023-03-26 11:54] LABS: Folate 7.76 ng/mL
[2023-03-26 13:44] LABS: Erythrocyte Sedimentation Rate 13 mm/hr (0-20)
[2023-03-29 12:13] LABS: Lyme B. burgdorferi PCR Blood Negative (Negative)
== END ==
PROVIDERS: PCP Family Medicine; Visit Provider Specialist
DX: R26.81 Unsteadiness on feet (principal); R74.8 Abnormal levels of other serum enzymes; M21.371 Foot drop, right foot; I67.83 Posterior reversible encephalopathy syndrome; I77.6 Arteritis, unspecified; I20.8 Other forms of angina pectoris
CPT/HCPCS: 36415; 70544; 70553; 80053; 82607; 82746; 84443; 85025; 85651; 87476; A9576